=== PATIENT | female | born 1940 | race Caucasian/White ===

== ENCOUNTER 2018-08-08 12:01 | Day surgery (SDC) | payer MEDICARE, BC ==
[2018-08-03 15:25] LABS: BASOPHILS # (AUTO) 0.1 X10'3 (0-0.2); BASOPHILS % (AUTO) 1.1 % (0-1); EOSINOPHILS # (AUTO) 0.3 X10'3 (0-0.9); EOSINOPHILS % (AUTO) 4.8 % (0-6); HEMATOCRIT 36.6 % (35.0-45.0); HEMOGLOBIN 12.4 g/dl (12.0-16.0); LYMPHOCYTES # (AUTO) 1.1 X10'3 (1.1-4.8); LYMPHOCYTES % (AUTO) 19.9 % (21-51); MEAN CORPUSCULAR HGB CONC 33.9 g/dL (33.0-36.5); MEAN CORPUSCULAR VOLUME 97.2 FL (78-98); MEAN PLATELET VOLUME 8.6 FL (7.4-10.4); MONOCYTES # (AUTO) 0.7 X10'3 (0-0.9); MONOCYTES % (AUTO) 12.5 % (2-12); NEUTROPHILS # (AUTO) 3.6 X10'3 (1.8-7.7); NEUTROPHILS % (AUTO) 61.7 % (42-75); PLATELET COUNT 257 X10'3 (140-440); RED BLOOD COUNT 3.77 X10'6 (4.20-5.60); RED CELL DISTRIBUTION WIDTH 13.3 % (11.5-14.5); WHITE BLOOD COUNT 5.8 X10'3 (4.5-11.0)
[2018-08-03 15:26] LABS: ALBUMIN 3.5 G/DL (3.4-5.0); ANION GAP 5 (8-16); BLOOD UREA NITROGEN 24 MG/DL (7-18); BUN/CREATININE RATIO 27.9 (6.6-38.0); CALCIUM 8.8 MG/DL (8.5-10.1); CHLORIDE 103 MMOL/L (99-107); CREATININE 0.86 MG/DL (0.40-0.90); GLUCOSE 94 MG/DL (70-104); SODIUM 138 MMOL/L (135-145); TOTAL CARBON DIOXIDE 30.4 MMOL/L (24-32); eGFR 64 ML/MIN
[2018-08-03 15:30] LABS: PARTIAL THROMBOPLASTIN TIME 26 SECONDS (22-32)
[~2018-08-08] VITALS: Ht 177.8 cm; Wt 54.1 kg
[2018-08-08] VITALS (11 sets, daily range): BP systolic 114–133; BP diastolic 51–66
[2018-08-08] MEDS ORDERED: normal saline 1,000 ML IV SCH (12:35)
[2018-08-08] MEDS ORDERED: diphenhydrAMINE 25mg capsule PO PRN (12:35)
[2018-08-08] MEDS ORDERED: LIDOcaine/PRILOcaine 5gm cream TP ONE (12:35)
[2018-08-08] MEDS ORDERED: LORazepam 0.5 MG tablet PO PRN (12:35)
[2018-08-08] MEDS ORDERED: METH1TAB32 PO (13:33)
[2018-08-08] MEDS ORDERED: LEVO100T PO (13:33)
[2018-08-08] MEDS ORDERED: MULT-269 PO (13:33)
[2018-08-08] MEDS ORDERED: LACT1CAP65 PO (13:33)
[2018-08-08] MEDS ORDERED: CALC-729 PO (13:33)
[2018-08-08] MEDS ORDERED: CHOL2000 PO (13:33)
[2018-08-08] MEDS ORDERED: nitroGLYCERIN-Tridil 50MG/D5W 250 ML IV ONE (13:47)
[2018-08-08] MEDS ORDERED: midazolam 2 mg/2 ml injection ONE (13:48)
[2018-08-08] MEDS ORDERED: heparin 1,000unit/ml 10ml vial 10 ML ONE (13:48)
[2018-08-08] MEDS ORDERED: iohexol 350MG/ML 100ml bottle IV ONE (13:48)
[2018-08-08] MEDS ORDERED: fentaNYL/PF 50MCG/1 ML 2ML syringe ONE (13:48)
[2018-08-08] MEDS ORDERED: verapamil 2.5 mg/ml inj IV ONE (14:02)
[2018-08-08] MEDS ORDERED: LIDOcaine 1% (10mg/ml)w/preservative injection 20ml MDV ONE (14:02)
[2018-08-08] MEDS ORDERED: HYDROcodone/acetaminophen 10/325mg tab PO PRN (15:35)
[2018-08-08] MEDS ORDERED: ondansetron/PF 4mg/2ml inj IV PRN (15:35)
[2018-08-08] MEDS ORDERED: proCHLORperazine 10 MG/2 ml inj IV PRN (15:35)
[2018-08-08] MEDS ORDERED: OXAZEpam 15mg capsule PO PRN (15:35)
[2018-08-08] MEDS ORDERED: HYDROcodone/acetaminophen 5mg/325mg tablet PO PRN (15:35)
== END 2018-08-08 19:00 | disposition home or self-care (01) ==
LOC: SSTAY O 12:01
PROVIDERS: ATTEND Internal Medicine Interventional Cardiology
DX: I35.0 Nonrheumatic aortic (valve) stenosis (principal); I48.0 Paroxysmal atrial fibrillation; E03.9 Hypothyroidism, unspecified; C50.911 Malignant neoplasm of unspecified site of right female breast; M19.90 Unspecified osteoarthritis, unspecified site; Z79.899 Other long term (current) drug therapy; Z88.0 Allergy status to penicillin
CPT/HCPCS: 36415; 80048; 85025; 85610; 85730; 93005; 93308; 93458; 99152; C1769; J1644; J2001; J2250; J3010; J7030; Q0163; Q9967; A4620; J3490

== ENCOUNTER 2018-09-23 12:24 | Emergency (ER) | payer MEDICARE, BC ==
[~2018-09-23] VITALS: Ht 177.8 cm; Wt 56.8 kg
[~2018-09-23 12:24] MED LIST: CALC-729 PO; CHOL2000 PO; LACT1CAP65 PO; LEVO100T PO; METH1TAB32 PO; MULT-269 PO
[2018-09-23] MEDS ORDERED: magnesium 2GM in 50ml NS 50 ML IV ONE (14:40)
[2018-09-23 14:59] LABS: BASOPHILS # (AUTO) 0.1 X10'3 (0-0.2); BASOPHILS % (AUTO) 1.4 % (0-1); EOSINOPHILS # (AUTO) 0.2 X10'3 (0-0.9); EOSINOPHILS % (AUTO) 4.1 % (0-6); HEMATOCRIT 36.2 % (35.0-45.0); HEMOGLOBIN 12.2 g/dl (12.0-16.0); LYMPHOCYTES # (AUTO) 1.3 X10'3 (1.1-4.8); LYMPHOCYTES % (AUTO) 29.8 % (21-51); MEAN CORPUSCULAR HEMOGLOBIN 33.2 PG (27.0-31.0); MEAN CORPUSCULAR HGB CONC 33.7 g/dL (33.0-36.5); MEAN CORPUSCULAR VOLUME 98.3 FL (78-98); MEAN PLATELET VOLUME 8.6 FL (7.4-10.4); MONOCYTES # (AUTO) 0.7 X10'3 (0-0.9); MONOCYTES % (AUTO) 15.5 % (2-12); NEUTROPHILS # (AUTO) 2.2 X10'3 (1.8-7.7); NEUTROPHILS % (AUTO) 49.2 % (42-75); PLATELET COUNT 204 X10'3 (140-440); RED BLOOD COUNT 3.68 X10'6 (4.20-5.60); RED CELL DISTRIBUTION WIDTH 13.4 % (11.5-14.5); WHITE BLOOD COUNT 4.5 X10'3 (4.5-11.0)
[2018-09-23 15:11] LABS: ALANINE AMINOTRANSFERASE 21 U/L (12-78); ALBUMIN 3.6 G/DL (3.4-5.0); ALKALINE PHOSPHATASE 59 IU/L (46-116); ANION GAP 7 (8-16); ASPARTATE AMINO TRANSFERASE 15 U/L (10-37); BILIRUBIN,TOTAL 0.4 MG/DL (0.1-1.0); BLOOD UREA NITROGEN 13 MG/DL (7-18); BUN/CREATININE RATIO 17.8 (6.6-38.0); CALCIUM 9.2 MG/DL (8.5-10.1); CHLORIDE 102 MMOL/L (99-107); CREATININE 0.73 MG/DL (0.40-0.90); GLUCOSE 101 MG/DL (70-104); POTASSIUM 4.5 MMOL/L (3.5-5.1); SODIUM 137 MMOL/L (135-145); TOTAL CARBON DIOXIDE 27.7 MMOL/L (24-32); TOTAL PROTEIN 7.3 G/DL (6.4-8.2); eGFR 77 ML/MIN
[2018-09-23 15:18] LABS: MAGNESIUM 1.6 MG/DL (1.5-2.4)
[2018-09-23] MEDS ORDERED: etomidate 2mg/ml inj. IV ONE (15:50)
--- NOTE | 2018-09-23 15:50 | NUR ---
ASSUMED CARE OF PT FOR PROCEDURE: CARDIOVERSION. PT MOVED TO BED 4. CONSENTS BEING COMPLETED. PATIENT PLACED ON MONITOR, AND DEFIB PADS IN PLACE. AT BEDSIDE. RESPIRATORY CALLED.
[2018-09-23] MEDS ORDERED: amiodarone 50MG/ML inj IV ONE ×2 (16:05→16:45)
[2018-09-23] MEDS ORDERED: amiodarone 150mg/dext, iso-os 100 ML IV ONE (16:05)
[2018-09-23] MEDS ORDERED: AMIO200T40 PO (16:27)
[2018-09-23] MEDS ORDERED: APIX5TAB3 PO (16:35)
[2018-09-23] MEDS ORDERED: SOTA80TA PO (16:35)
[2018-09-23 17:44] VITALS: BP 151/62
== END 2018-09-23 18:13 | disposition home or self-care (01) ==
LOC: ER 12:24
DX: I48.91 Unspecified atrial fibrillation (principal); Z88.0 Allergy status to penicillin; Z79.899 Other long term (current) drug therapy
CPT/HCPCS: 36415; 71045; 80053; 83735; 83880; 84484; 85025; 92960; 93005; 96365; 99152; 99291; J3475; 96375; 99284; 99285; J0282

== ENCOUNTER 2018-11-08 08:43 | Outpatient (CLI) | payer MEDICARE, BC ==
[~2018-11-08 08:43] MED LIST changes: +APIX5TAB3 PO; +SOTA80TA PO
[2018-11-08] MEDS ORDERED: albuterol 2.5 MG/3 ML nebule ONE (10:01)
[2018-11-08] MEDS ORDERED: albuterol 2.5 MG/3 ML nebule NEB PRN (10:10)
== END 2018-11-08 23:59 | disposition home or self-care (01) ==
LOC: RT 08:43
PROVIDERS: ATTEND Specialist
DX: R94.2 Abnormal results of pulmonary function studies (principal); R06.02 Shortness of breath; Z79.899 Other long term (current) drug therapy
CPT/HCPCS: 94060; 94727; 94729; 94760

== ENCOUNTER 2021-07-21 10:23 | Day surgery (SDC) | payer MEDICARE, BC ==
[2021-07-15 14:10] LABS: EOSINOPHILS # (AUTO) 0.1 X10'3 (0-0.9); EOSINOPHILS % (AUTO) 2.1 % (0-6); HEMATOCRIT 36.5 % (35.0-45.0); HEMOGLOBIN 12.2 g/dl (12.0-16.0); LYMPHOCYTES % (AUTO) 27.6 % (21-51); MEAN CORPUSCULAR HEMOGLOBIN 32.9 PG (27.0-31.0); MEAN CORPUSCULAR HGB CONC 33.5 g/dL (33.0-36.5); MEAN CORPUSCULAR VOLUME 98.1 FL (78-98); MEAN PLATELET VOLUME 8.2 FL (7.4-10.4); MONOCYTES # (AUTO) 0.5 X10'3 (0-0.9); MONOCYTES % (AUTO) 13.7 % (2-12); NEUTROPHILS # (AUTO) 2.1 X10'3 (1.8-7.7); NEUTROPHILS % (AUTO) 55.6 % (42-75); PLATELET COUNT 208 X10'3 (140-440); RED BLOOD COUNT 3.72 X10'6 (4.20-5.60); RED CELL DISTRIBUTION WIDTH 13.9 % (11.5-14.5); WHITE BLOOD COUNT 3.8 X10'3 (4.5-11.0)
[2021-07-15 14:25] LABS: ALBUMIN 3.9 G/DL (3.4-5.0); ANION GAP 8 (8-16); BLOOD UREA NITROGEN 25 MG/DL (7-18); BUN/CREATININE RATIO 26.6 (6.6-38.0); CALCIUM 9.6 MG/DL (8.5-10.1); CHLORIDE 100 MMOL/L (99-107); CREATININE 0.94 MG/DL (0.40-0.90); GLUCOSE 113 MG/DL (70-104); POTASSIUM 4.4 MMOL/L (3.5-5.1); SODIUM 138 MMOL/L (135-145); TOTAL CARBON DIOXIDE 30.1 MMOL/L (24-32); eGFR 57 ML/MIN
[2021-07-15 14:26] LABS: APTT 29 SECONDS (22-32)
[~2021-07-21] VITALS: Ht 177.8 cm; Wt 59.1 kg
[2021-07-21] VITALS (14 sets, daily range): BP systolic 124–152; BP diastolic 55–77
[2021-07-21] MEDS ORDERED: fentaNYL/PF 50MCG/1 ML 2ML syringe IV ONE (10:50)
[2021-07-21] MEDS ORDERED: MIDAZolam 1mg/ml 10ml vial IV ONE (10:50)
[2021-07-21] MEDS ORDERED: normal saline 1000ml 1,000 ML IV SCH (10:50)
[2021-07-21] MEDS ORDERED: APIX5TAB3 PO (10:52)
[2021-07-21] MEDS ORDERED: AMIO200T61 PO (10:52)
== END 2021-07-21 15:15 | disposition home or self-care (01) ==
LOC: SSTAY O 10:23
PROVIDERS: ATTEND Internal Medicine Interventional Cardiology
DX: I48.0 Paroxysmal atrial fibrillation (principal); I08.0 Rheumatic disorders of both mitral and aortic valves; E03.9 Hypothyroidism, unspecified; Z79.899 Other long term (current) drug therapy; Z79.01 Long term (current) use of anticoagulants; Z88.0 Allergy status to penicillin; Z95.2 Presence of prosthetic heart valve
CPT/HCPCS: 36415; 80048; 85025; 85610; 85730; 92960; 93005; 94760; 94799; J2250; J3010

== ENCOUNTER 2022-08-20 13:53 | Day surgery (SDC) | payer MEDICARE, BC ==
[2022-08-13 09:27] LABS: BASOPHILS # (AUTO) 0.1 X10'3 (0-0.2); BASOPHILS % (AUTO) 1.2 % (0-1); EOSINOPHILS # (AUTO) 0.1 X10'3 (0-0.9); EOSINOPHILS % (AUTO) 1.6 % (0-6); HEMATOCRIT 39.4 % (35.0-45.0); HEMOGLOBIN 13.4 g/dl (12.0-16.0); LYMPHOCYTES # (AUTO) 0.8 X10'3 (1.1-4.8); MEAN CORPUSCULAR HGB CONC 33.9 g/dL (33.0-36.5); MEAN CORPUSCULAR VOLUME 100.2 FL (78-98); MEAN PLATELET VOLUME 8.4 FL (7.4-10.4); MONOCYTES # (AUTO) 0.7 X10'3 (0-0.9); MONOCYTES % (AUTO) 10.2 % (2-12); NEUTROPHILS # (AUTO) 4.9 X10'3 (1.8-7.7); PLATELET COUNT 241 X10'3 (140-440); RED BLOOD COUNT 3.93 X10'6 (4.20-5.60); WHITE BLOOD COUNT 6.6 X10'3 (4.5-11.0)
[2022-08-13 09:39] LABS: APTT 29 SECONDS (22-32)
[2022-08-13 09:44] LABS: ALBUMIN 3.6 G/DL (3.4-5.0); ANION GAP 5 (8-16); BLOOD UREA NITROGEN 32 MG/DL (7-18); BUN/CREATININE RATIO 30.2 (10.0-20.0); CHLORIDE 100 MMOL/L (99-107); CHOL/HDL RATIO 1.9 (0.00-4.99); CHOLESTEROL 224 MG/DL (0-200); CREATININE 1.06 MG/DL (0.40-0.90); GLUCOSE 120 MG/DL (70-104); HDL CHOLESTEROL 117 MG/DL (35-60); LDL CHOLESTEROL 89 MG/DL (50-100); POTASSIUM 4.3 MMOL/L (3.5-5.1); SODIUM 138 MMOL/L (135-145); TOTAL CARBON DIOXIDE 32.6 MMOL/L (24-32); TRIGLYCERIDES 38 MG/DL (20-135); eGFR 50 ML/MIN
[~2022-08-20] VITALS: Ht 177.8 cm; Wt 54.7 kg
[2022-08-20] VITALS (7 sets, daily range): BP systolic 109–131; BP diastolic 51–68
[~2022-08-20 13:53] MED LIST changes: +AMI200T PO; -SOTA80TA PO
[2022-08-20] MEDS ORDERED: normal saline 1,000 ML IV SCH (14:05)
[2022-08-20] MEDS ORDERED: diphenhydrAMINE 25mg capsule PO PRN (14:05)
[2022-08-20] MEDS ORDERED: LORazepam 0.5 MG tablet PO PRN (14:05)
[2022-08-20] MEDS ORDERED: FURO20TA4 PO (14:59)
[2022-08-20] MEDS ORDERED: PANT40TA54 PO (14:59)
[2022-08-20] MEDS ORDERED: FOLI0.4T6 PO (14:59)
[2022-08-20] MEDS ORDERED: DICL100G30 (14:59)
[2022-08-20] MEDS ORDERED: CRAN400C PO (14:59)
[2022-08-20] MEDS ORDERED: DENO60DI SUBCUT (14:59)
[2022-08-20] MEDS ORDERED: nitroGLYCERIN-Tridil 50MG/D5W 250 ML IV ONE (16:52)
[2022-08-20] MEDS ORDERED: verapamil 2.5 mg/ml inj IV ONE (16:52)
[2022-08-20] MEDS ORDERED: LIDOcaine 1% (10mg/ml) 2ml vial ONE (16:52)
[2022-08-20] MEDS ORDERED: heparin 1,000unit/ml 10ml vial 10 ML ONE (16:53)
[2022-08-20] MEDS ORDERED: heparin 1,000 UNITS/NS 500ml 500 ML ONE (16:53)
[2022-08-20] MEDS ORDERED: iohexol 350MG/ML 100ml bottle IV ONE (16:53)
[2022-08-20] MEDS ORDERED: midazolam 1 mg/ML 2ml injection ONE (16:53)
[2022-08-20] MEDS ORDERED: fentaNYL/PF 50MCG/1 ML 2ML syringe ONE (16:53)
[2022-08-20 18:28] LABS: ISTAT HGB ART 10.9 g/dl (12.0-16.0); ISTAT Hct ART 32 %PCV (35-45); ISTAT O2 SATURATION ARTERIAL 91 % (95-98); ISTAT SOURCE ART
[2022-08-20] MEDS ORDERED: HYDROcodone/acetaminophen 5mg/325mg tablet PO PRN (18:55)
[2022-08-20] MEDS ORDERED: HYDROcodone/acetaminophen 10/325mg tab PO PRN (18:55)
[2022-08-23 07:33] LABS: ISTAT Hct MIX 34 %PCV (35-45); ISTAT O2 SATURATION MIX VENOUS 69 % (60-80); ISTAT SOURCE OTHER
== END 2022-08-20 20:35 | disposition home or self-care (01) ==
LOC: SSTAY O 13:53
PROVIDERS: ATTEND Student in an Organized Health Care Education/Training Program
DX: I08.0 Rheumatic disorders of both mitral and aortic valves (principal); I10 Essential (primary) hypertension; E78.5 Hyperlipidemia, unspecified; E05.90 Thyrotoxicosis, unspecified without thyrotoxic crisis or storm; I48.91 Unspecified atrial fibrillation; E03.9 Hypothyroidism, unspecified; Z79.01 Long term (current) use of anticoagulants; Z79.899 Other long term (current) drug therapy; Z88.0 Allergy status to penicillin
CPT/HCPCS: 36415; 80048; 80061; 82803; 85014; 85025; 85610; 85730; 93005; 93456; 99152; 99153; A6258; J1644; J2250; J3010; J3490; J7030; Q0163; Q9967; A6402; C1751; C1894

== ENCOUNTER 2022-09-10 10:41 | Outpatient (CLI) | payer MEDICARE, BC ==
[~2022-09-10] VITALS: Ht 175.3 cm; Wt 56.7 kg
[~2022-09-10 10:41] MED LIST changes: +CRAN400C PO; +DENO60DI SUBCUT; +DICL100G30; +FOLI0.4T6 PO; +FURO20TA4 PO; +PANT40TA54 PO
[2022-09-10 11:16] LABS: BASOPHILS # (AUTO) 0.1 X10'3 (0-0.2); BASOPHILS % (AUTO) 1.1 % (0-1); EOSINOPHILS # (AUTO) 0.1 X10'3 (0-0.9); EOSINOPHILS % (AUTO) 1.9 % (0-6); HEMATOCRIT 36.3 % (35.0-45.0); HEMOGLOBIN 12.4 g/dl (12.0-16.0); LYMPHOCYTES # (AUTO) 0.9 X10'3 (1.1-4.8); LYMPHOCYTES % (AUTO) 15.2 % (21-51); MEAN CORPUSCULAR HEMOGLOBIN 34.5 PG (27.0-31.0); MEAN CORPUSCULAR HGB CONC 34.3 g/dL (33.0-36.5); MEAN CORPUSCULAR VOLUME 100.5 FL (78-98); MEAN PLATELET VOLUME 7.9 FL (7.4-10.4); MONOCYTES # (AUTO) 0.7 X10'3 (0-0.9); MONOCYTES % (AUTO) 11.6 % (2-12); NEUTROPHILS # (AUTO) 4.1 X10'3 (1.8-7.7); NEUTROPHILS % (AUTO) 70.2 % (42-75); PLATELET COUNT 207 X10'3 (140-440); RED BLOOD COUNT 3.61 X10'6 (4.20-5.60); RED CELL DISTRIBUTION WIDTH 14.5 % (11.5-14.5); WHITE BLOOD COUNT 5.8 X10'3 (4.5-11.0)
[2022-09-10 11:31] LABS: APTT 33 SECONDS (22-32)
[2022-09-10 11:54] LABS: ALANINE AMINOTRANSFERASE 26 U/L (12-78); ALBUMIN/GLOBULIN RATIO 1.1 (1.1-1.5); ALKALINE PHOSPHATASE 67 IU/L (46-116); ANION GAP 11 (8-16); ASPARTATE AMINO TRANSFERASE 30 U/L (10-37); BILIRUBIN,TOTAL 0.5 MG/DL (0.1-1.0); BLOOD UREA NITROGEN 27 MG/DL (7-18); CALCIUM 9.6 MG/DL (8.5-10.1); CHLORIDE 101 MMOL/L (99-107); CREATININE 1.08 MG/DL (0.40-0.90); GLUCOSE 107 MG/DL (70-104); POTASSIUM 3.9 MMOL/L (3.5-5.1); SODIUM 141 MMOL/L (135-145); TOTAL CARBON DIOXIDE 28.8 MMOL/L (24-32); TOTAL PROTEIN 7.5 G/DL (6.4-8.2); eGFR 49 ML/MIN
[2022-09-10] MEDS ORDERED: IODIXANOL 320 MG/ML INFUS..BTL 100ML IV ONE (11:59)
[2022-09-10 13:14] LABS: ABG BASE EXCESS -1.3 mmol/L (-2.0-2.0); ABG HCO3 22.2 mmol/L (22.0-26.0); ABG PCO2 (T) 33.8 mmHg (32.0-45.0); ABG PO2 (T) 86.6 mmHg (75.0-100.0); FCOHb 0.5 % (0.0-3.9); FO2Hb 95.5 % (94-97)
[2022-09-10] MEDS ORDERED: albuterol 2.5 MG/3 ML nebule NEB PRN (13:25)
== END 2022-09-10 23:59 | disposition home or self-care (01) ==
LOC: RAD 10:41
PROVIDERS: ATTEND Internal Medicine Cardiovascular Disease
DX: J43.2 Centrilobular emphysema (principal); K76.0 Fatty (change of) liver, not elsewhere classified; K57.30 Diverticulosis of large intestine without perforation or abscess without bleeding; I35.0 Nonrheumatic aortic (valve) stenosis; R06.02 Shortness of breath; I65.29 Occlusion and stenosis of unspecified carotid artery; R94.2 Abnormal results of pulmonary function studies; J90 Pleural effusion, not elsewhere classified; I70.0 Atherosclerosis of aorta; N28.1 Cyst of kidney, acquired; M47.814 Spondylosis without myelopathy or radiculopathy, thoracic region; M47.817 Spondylosis without myelopathy or radiculopathy, lumbosacral region; Z95.2 Presence of prosthetic heart valve; Z96.641 Presence of right artificial hip joint
CPT/HCPCS: 36415; 36600; 71046; 71275; 74174; 80053; 82803; 83880; 85018; 85025; 85610; 85730; 94060; 94727; 94729; 94760; J3490; Q9967